=== PATIENT | female | born 1955 | race African-American/Black ===

== ENCOUNTER 2025-01-16 08:04 | Emergency (ER) | payer MEDICARE, OTHER ==
[~2025-01-16] VITALS: Ht 162.6 cm; Wt 93.9 kg
[2025-01-16] MEDS ORDERED: FURO20TA4 PO (08:48)
[2025-01-16] MEDS ORDERED: DOCU-141 PO (08:48)
[2025-01-16] MEDS ORDERED: TRAM50TA PO (08:48)
[2025-01-16] MEDS ORDERED: ATOR20TA PO (08:48)
[2025-01-16] MEDS ORDERED: LISI20TA30 PO (08:48)
[2025-01-16] MEDS ORDERED: AMLO-212 PO (08:48)
[2025-01-16] MEDS ORDERED: CHLO25TA2 PO (08:48)
[2025-01-16] MEDS ORDERED: HYDR-4209 PO (08:48)
[2025-01-16] MEDS ORDERED: PANT40TA49 PO (08:48)
[2025-01-16 10:57] LABS: PLATELET COUNT (AUTO) 363 K/uL (179-408); RED BLOOD CELL COUNT(AUTO) 4.24 MIL/uL (3.63-4.92); RED CELL DISTRIBUTION WIDTH 17.1 % (12.3-17.7); WHITE BLOOD COUNT (AUTO) 7.0 K/uL (3.8-11.8)
[2025-01-16] MEDS ORDERED: MORPHINE SULFATE 4 MG/1 ML DISP.SYRIN ONE ×2 (10:58→18:16)
[2025-01-16] MEDS ORDERED: ONDANSETRON 4 MG/2 ML VIAL ONE ×2 (10:58→18:15)
[2025-01-16] MEDS: MORPHINE SULFATE 4 MG/1 ML DISP.SYRIN IV ONE ×2 (11:05→18:24)
[2025-01-16] MEDS: ONDANSETRON 4 MG/2 ML VIAL IV ONE ×2 (11:06→18:24)
[2025-01-16 11:10] LABS: CREATININE 0.8 mg/dL (0.6-1.3); SODIUM SERUM 139 mmol/L (136-145); UREA NITROGEN, BLOOD 15 mg/dL (7-18)
[2025-01-16 11:16] LABS: ASPARTATE AMINOTRANSFERASE 30 U/L (15-37); TOTAL PROTEIN, SERUM 8.4 g/dL (6.4-8.2)
[2025-01-16] MEDS ORDERED: IOHEXOL 350 100 ML INFUS..BTL ONE (11:24)
[2025-01-16] MEDS ORDERED: IV NORMAL SALINE 250 ML IV ONE (11:24)
[2025-01-16] MEDS ORDERED: SWABABLE VALVE TRANSFER SET EA MC ONE (11:24)
[2025-01-16] MEDS ORDERED: INSULIN REGULAR, HUMAN 1000 UNIT/10 ML VIAL ONE (14:48)
[2025-01-16] MEDS ORDERED: DEXTROSE 50% 50 ML DISP.SYRIN ONE (14:48)
[2025-01-16] MEDS ORDERED: SODIUM BICARBONATE 8.4% 50 MEQ/50 ML DISP.SYRIN IV ONE (14:48)
[2025-01-16] MEDS: INSULIN REGULAR, HUMAN 1000 UNIT/10 ML VIAL IV ONE (14:51)
[2025-01-16] MEDS: SODIUM BICARBONATE 8.4% 50 MEQ/50 ML DISP.SYRIN IV ONE (14:58)
[2025-01-16] MEDS: DEXTROSE 50% 50 ML DISP.SYRIN IV ONE (14:58)
[2025-01-16] MEDS ORDERED: HEPARIN/D5W DRIP 500 ML ONE (15:03)
[2025-01-16] MEDS ORDERED: HEPARIN SODIUM,PORCINE 5,000 UNITS/ML VIAL ONE (15:09)
[2025-01-16] MEDS: HEPARIN SODIUM,PORCINE/PF 500 UNIT/5 ML SYR IV ONE (15:12)
[2025-01-16 15:14] LABS: CREATININE 0.9 mg/dL (0.6-1.3); SODIUM SERUM 140.0 mmol/L (136-145); UREA NITROGEN, BLOOD 12.0 mg/dL (7-18)
[2025-01-16] MEDS: HEPARIN/D5W 25000 UNITS/500 ML BAG IV ONE (15:14)
[2025-01-16 17:17] VITALS: BP 106/52; O2SAT 95
[2025-01-16 17:34] LABS: PLATELET COUNT (AUTO) 378 K/uL (179-408); RED BLOOD CELL COUNT(AUTO) 3.99 MIL/uL (3.63-4.92); RED CELL DISTRIBUTION WIDTH 16.3 % (12.3-17.7); WHITE BLOOD COUNT (AUTO) 7.6 K/uL (3.8-11.8)
[2025-01-16 17:42] LABS: CREATININE 1.1 mg/dL (0.6-1.3); SODIUM SERUM 144.0 mmol/L (136-145); UREA NITROGEN, BLOOD 14.0 mg/dL (7-18)
[2025-01-16 17:48] LABS: ASPARTATE AMINOTRANSFERASE 18.0 U/L (15-37); TOTAL PROTEIN, SERUM 7.2 g/dL (6.4-8.2)
[2025-01-16 19:12] LABS: *BILIRUBIN,URIN NEGATIVE (NEGATIVE); *BLOOD, URINE NEGATIVE (NEGATIVE); *CLARITY,URINE CLEAR (CLEAR); *COLOR,URINE YELLOW (YELLOW); *KETONES,URINE NEGATIVE (NEGATIVE); *PROTEIN,URINE NEGATIVE (NEGATIVE); *UROBILINOGEN,URINE 1.0 E.U./dl (NORMAL); LEUKOCYTE ESTERASE ,URINE NEGATIVE (NEGATIVE); NITRITE, URINE NEGATIVE (NEGATIVE); UGLUCOSE NEGATIVE (NEGATIVE)
[2025-01-16 19:24] LABS: SQUAMOUS EPITHELIAL CELL,UR FEW /HPF (NONE SEEN)
== END 2025-01-16 18:43 | disposition short-term general hospital (02) ==
LOC: ER 08:13
DX: I70.291 Other atherosclerosis of native arteries of extremities, right leg (principal); K43.6 Other and unspecified ventral hernia with obstruction, without gangrene; E11.51 Type 2 diabetes mellitus with diabetic peripheral angiopathy without gangrene; F17.210 Nicotine dependence, cigarettes, uncomplicated; F32.A Depression, unspecified; F41.9 Anxiety disorder, unspecified; F20.9 Schizophrenia, unspecified; R07.9 Chest pain, unspecified; Z79.899 Other long term (current) drug therapy; Z90.49 Acquired absence of other specified parts of digestive tract; Z98.84 Bariatric surgery status; Z98.890 Other specified postprocedural states
CPT/HCPCS: 99291; 73706; 96375; 96374; 71045; 81001; 83880; 83690; 85025 ×2; 84145; 85730; 87040 ×2; 87086; 84484 ×2; 36415; 74176; 93005; 96376; 83605; 80076 ×2; 80048 ×3; J3490 ×2; J1644 ×2; J2405 ×2; Q9967; J2270 ×2; J1815; A4606; A4663